=== PATIENT | male | born 1960 | race Caucasian/White ===

== ENCOUNTER → 2019-11-24 09:35 | Outpatient (BNVA) | payer BC, SELFPAY | PROVIDERS: Family Provider Nurse Practitioner; PCP Nurse Practitioner; Visit Provider Internal Medicine Rheumatology | DX: M05.79 Rheumatoid arthritis with rheumatoid factor of multiple sites without organ or systems involvement (principal); Z79.899 Other long term (current) drug therapy | CPT/HCPCS: 80076; 82565; 85025; 85651; 86140 ==

== ENCOUNTER → 2020-03-15 16:04 | Outpatient (BNVA) | payer BC, SELFPAY | PROVIDERS: Family Provider Nurse Practitioner; PCP Nurse Practitioner; Visit Provider Nurse Practitioner Family | DX: M06.9 Rheumatoid arthritis, unspecified (principal); I10 Essential (primary) hypertension; Z79.899 Other long term (current) drug therapy; G89.4 Chronic pain syndrome | CPT/HCPCS: 80076; 82306; 82565; 85025; 85651; 86140 ==

== ENCOUNTER → 2020-07-12 08:06 | Outpatient (BNVA) | payer BC, SELFPAY | PROVIDERS: Family Provider Nurse Practitioner; PCP Nurse Practitioner; Visit Provider Internal Medicine Rheumatology | DX: M06.9 Rheumatoid arthritis, unspecified (principal); Z79.899 Other long term (current) drug therapy; M19.90 Unspecified osteoarthritis, unspecified site | CPT/HCPCS: 80076; 82565; 85025; 85651; 86140 ==

== ENCOUNTER → 2020-08-14 09:24 | Outpatient (BNVA) | payer BC, SELFPAY | PROVIDERS: Family Provider Nurse Practitioner; PCP Nurse Practitioner; Visit Provider Internal Medicine Rheumatology | DX: M05.79 Rheumatoid arthritis with rheumatoid factor of multiple sites without organ or systems involvement (principal); Z79.899 Other long term (current) drug therapy; Z79.52 Long term (current) use of systemic steroids; I10 Essential (primary) hypertension; E55.9 Vitamin D deficiency, unspecified | CPT/HCPCS: 99214 ==

== ENCOUNTER → 2020-12-27 13:34 | Outpatient (BNVA) | payer BC, SELFPAY | PROVIDERS: Family Provider Nurse Practitioner; PCP Nurse Practitioner; Visit Provider Internal Medicine Rheumatology | DX: Z79.899 Other long term (current) drug therapy (principal) | CPT/HCPCS: 36415; 80076; 85025; 86140 ==

== ENCOUNTER → 2021-01-02 14:11 | Outpatient (BNVA) | payer BC, SELFPAY | PROVIDERS: Family Provider Nurse Practitioner; PCP Nurse Practitioner; Visit Provider Internal Medicine Rheumatology | DX: M05.79 Rheumatoid arthritis with rheumatoid factor of multiple sites without organ or systems involvement (principal); Z79.899 Other long term (current) drug therapy; Z79.52 Long term (current) use of systemic steroids; E55.9 Vitamin D deficiency, unspecified | CPT/HCPCS: 99214 ==

== ENCOUNTER 2021-03-20 06:13 | Outpatient (CLI) | payer SELFPAY ==
[2021-03-20 06:26] VITALS: BP 111/72; PULSE 82; RESP 18; TEMP 36.9; O2SAT 92
--- NOTE | 2021-03-20 06:56 | A.OFFVIS_ITS ---
Patient Information COVID 19 common symptoms: positive fever(s) and chills [facility] COVID test results: No Data to Display outside results available, scanned Criteria/Plan Inclusion/Exclusion Criteria weight >/= 40kg BMI >/= 35, has immunosuppressive disease and age >/= 55 and has hypertension not requiring hospitalization, not requiring oxygen (if not chronically on oxygen) and no increase oxygen requirement (if chronically on oxygen) Patient education patient/family/caregiver received/reviewed fact sheet, Emergency Use Authorization/unapproved drug status discussed with patient/family/caregiver, al ternatives to this treatment discussed with patient/family/caregiver, risks and benefits of medication reviewed with patient/family/caregiver, patient/family/caregiver given opportunity for questions, which were answered and patient consents to receiving Monoclonal Antibody Treatment Plan for treatment Meets criteria for Monoclonal Antibody infusion Ordering Monoclonal Antibody infusion for today
--- NOTE | 2021-03-20 07:17 | AMB.MCA ---
Patient Information Symptom onset date: 03/15/21 COVID 19 common symptoms: positive fever(s), chills, cough, non-productive cough, dyspnea, fatigue, body aches, headache(s), nasal congestion, nausea and diarrhea COVID 19 other sytmptoms: negative requiring oxygen Severity: mild Treatment prior to arrival: none Other details: 60-year-old male with a history of rheumatoid arthritis is on immunosuppressive therapy, he is also hypertensive. Patient had onset of symptoms approximately 1 week ago and a positive Covid test. Presents today for monoclonal antibody infusion vital signs are stable his oxygen sat on room air is 92%. He has generalized myalgias and cough. [facility] COVID test results: No Data to Display Criteria/Plan Inclusion/Exclusion Criteria weight >/= 40kg, + direct test </= 10 days ago and symptom onset </= 10 days ago receiving immunosuppressive therapy and has immunosuppressive disease not requiring hospitalization, not requiring oxygen (if not chronically on oxygen) and no increase oxygen requirement (if chronically on oxygen) Patient education patient/family/caregiver received/reviewed fact sheet, Emergency Use Authorization/unapproved drug status discussed with patient/family/caregiver, alternatives to this treatment discussed with patient/family/caregiver, risks and benefits of medication reviewed with patient/family/caregiver, patient/family/caregiver given opportunity for questions, which were answered and patient consents to receiving Monoclonal Antibody Treatment Plan for treatment Meets criteria for Monoclonal Antibody infusion Ordering Monoclonal Antibody infusion for today
[2021-03-20 08:00] VITALS: BP 111/71; PULSE 86; RESP 15; O2SAT 90
[2021-03-20 09:25] VITALS: PULSE 85; O2SAT 91
--- NOTE | 2021-03-28 13:25 | DCPLANNER ---
section [employer] property manager had message that patient received the monoclonal antibody infusion. section 8 property manager called patient to check on patient after receiving the infusion. section 8 property manager was unable to speak with patient at this time, a voicemail was left for patient to return case briefer phone call.
== END 2021-03-20 06:14 | disposition home or self-care (01) ==
PROVIDERS: PCP Nurse Practitioner; Visit Provider Nurse Practitioner Family
DX: U07.1 COVID-19 (principal); M06.9 Rheumatoid arthritis, unspecified; I10 Essential (primary) hypertension

== ENCOUNTER → 2021-04-05 10:37 | Outpatient (BNVA) | payer SELFPAY | PROVIDERS: PCP Nurse Practitioner; Visit Provider Nurse Practitioner Family | DX: I10 Essential (primary) hypertension (principal); R79.89 Other specified abnormal findings of blood chemistry | CPT/HCPCS: 80053; 80061; 83721; 84443; 85025; G0103 ==

== ENCOUNTER → 2021-04-09 10:15 | Outpatient (BNVA) | payer SELFPAY | PROVIDERS: PCP Nurse Practitioner; Visit Provider Nurse Practitioner Family | DX: E11.9 Type 2 diabetes mellitus without complications (principal) | CPT/HCPCS: 80053; 83036 ==

== ENCOUNTER → 2021-10-07 09:58 | Outpatient (BNVA) | payer SELFPAY | PROVIDERS: PCP Nurse Practitioner; Visit Provider Nurse Practitioner Family | DX: E11.9 Type 2 diabetes mellitus without complications (principal); G89.29 Other chronic pain; I10 Essential (primary) hypertension; M05.79 Rheumatoid arthritis with rheumatoid factor of multiple sites without organ or systems involvement; R79.89 Other specified abnormal findings of blood chemistry; Z79.899 Other long term (current) drug therapy | CPT/HCPCS: 80076; 82306; 82565; 85025; 86140 ==

== ENCOUNTER → 2022-04-28 12:49 | Outpatient (BNVA) | payer SELFPAY | PROVIDERS: PCP Nurse Practitioner; Visit Provider Internal Medicine Rheumatology | DX: M05.79 Rheumatoid arthritis with rheumatoid factor of multiple sites without organ or systems involvement (principal); Z79.899 Other long term (current) drug therapy; Z71.89 Other specified counseling | CPT/HCPCS: 36415; 80076; 82565; 85025; 86140 ==

== ENCOUNTER → 2023-01-13 14:42 | Outpatient (BNVA) | payer MEDICARE, OTHER, SELFPAY | PROVIDERS: PCP Nurse Practitioner; Visit Provider Internal Medicine Rheumatology | DX: M05.79 Rheumatoid arthritis with rheumatoid factor of multiple sites without organ or systems involvement (principal); Z79.899 Other long term (current) drug therapy; Z71.89 Other specified counseling | CPT/HCPCS: 80076; 82565; 85025; 86140; 99214 ==

== ENCOUNTER 2023-02-09 10:09 | Oncology outpatient (recurring) (ONCR) | payer MEDICARE, OTHER, SELFPAY ==
[2023-02-09 10:23] VITALS: BMI 26.6
[2023-02-09 10:30] VITALS: BP 134/90; PULSE 87; RESP 18; TEMP 36.4; O2SAT 96
[2023-02-09] MEDS: acetaminophen 325 mg Tablet 650 MG PO (10:39)
[2023-02-09] MEDS: diphenhydrAMINE 50 mg/mL SDV 1mL 25 MG IVP (10:39)
[2023-02-09] MEDS: sodium chloride 0.9% 250 ML 75 ML IV (10:41)
[2023-02-09] MEDS: abatacept 500 MG in sodium chloride 0.9% (100 ml) 100 ML 200 MG IV (11:11)
[2023-02-09 11:57] VITALS: BP 135/84; PULSE 67; RESP 18; TEMP 36.9; O2SAT 97
== END 2023-03-06 23:59 | disposition home or self-care (01) ==
PROVIDERS: PCP Nurse Practitioner; Visit Provider Internal Medicine Rheumatology
DX: M06.9 Rheumatoid arthritis, unspecified (principal)
CPT/HCPCS: 96365; 96375; J0129; J1200; J7050

== ENCOUNTER 2023-03-09 12:53 | Oncology outpatient (recurring) (ONCR) | payer MEDICARE, OTHER, SELFPAY ==
[2023-03-09 13:10] VITALS: BP 146/84; PULSE 82; RESP 17; TEMP 36.6; O2SAT 96
[2023-03-09] MEDS: diphenhydrAMINE 50 mg/mL SDV 1mL 25 MG IVP (13:22)
[2023-03-09] MEDS: sodium chloride 0.9% 250 ML 75 ML IV (13:22)
[2023-03-09] MEDS: acetaminophen 325 mg Tablet 650 MG PO (13:23)
[2023-03-09 13:32] LABS: Erythrocyte Sedimentation Rate 14 mm/hr (0-10)
[2023-03-09] MEDS: abatacept 500 MG in sodium chloride 0.9% (100 ml) 100 ML 200 MG IV (13:42)
[2023-03-09 13:43] LABS: Alanine Aminotransferase 10 U/L (0-41); Albumin Level 4.3 g/dL (3.5-5.2); Alkaline Phosphatase 88 U/L (40-130); Aspartate Amino Transferase 10 U/L (0-40); Globulin 2.4 g/dL (1.3-4.6); Total Bilirubin 0.4 mg/dL (0.15-1.2); Total Protein 6.7 g/dL (6.6-8.7)
[2023-03-09 14:22] VITALS: BP 145/88; PULSE 86; RESP 18; TEMP 36.2; O2SAT 96
== END 2023-04-06 23:59 | disposition home or self-care (01) ==
PROVIDERS: PCP Nurse Practitioner; Visit Provider Internal Medicine Rheumatology
DX: M06.9 Rheumatoid arthritis, unspecified (principal)
CPT/HCPCS: 80076; 82565; 85651; 96375; 96413; J0129; J1200; J7050

== ENCOUNTER 2023-05-04 13:02 | Oncology outpatient (recurring) (ONCR) | payer MEDICARE, OTHER, SELFPAY ==
[2023-04-07] MEDS: sodium chloride 0.9% 250 ML 75 ML IV (14:12)
[2023-04-07] MEDS: acetaminophen 325 mg Tablet 650 MG PO (14:12)
[2023-04-07] MEDS: abatacept 500 MG in sodium chloride 0.9% (100 ml) 100 ML 200 MG IV (14:33)
[2023-04-07 15:00] VITALS: BP 141/86; PULSE 82; RESP 18; TEMP 36.7; O2SAT 95
[2023-05-04 13:29] VITALS: BP 132/82; PULSE 82; RESP 16; TEMP 36.4; O2SAT 94
[2023-05-04] MEDS: acetaminophen 325 mg Tablet 650 MG PO (13:44)
[2023-05-04] MEDS: sodium chloride 0.9% 250 ML 75 ML IV (13:45)
[2023-05-04 13:48] LABS: Basophils % 0.3 %; Eosinophils # 0.3 10^3/uL (0.0-0.8); Eosinophils % 2.6 %; Hematocrit 41.1 % (37-53); Lymphocytes # 6.7 10^3/uL (0.8-4.8); Lymphocytes % 63.6 %; Mean Corpuscular HGB Conc 35.5 g/dL (30-55); Mean Corpuscular Hemoglobin 30.7 pg (27-33); Mean Corpuscular Volume 86.3 fl (82-101); Mean Platelet Volume 8.6 fL (7.4-10.4); Monocytes # 1.4 10^3/uL (0.2-0.9); Monocytes % 13.5 %; Neutrophils # 2.08 10^3/uL (1.8-7.7); Neutrophils % 19.7 %; Nucleated Red Blood Cells % 0 %; Platelet Count 165 10^3/cmm (157-399); Red Blood Count 4.76 10^6/uL (3.85-5.65); Red Cell Distribution Width 13.2 % (12.1-15.1); White Blood Count 10.58 10^3/uL (3.29-11.43)
[2023-05-04 13:55] LABS: Erythrocyte Sedimentation Rate 12 mm/hr (0-10)
[2023-05-04 14:10] LABS: Slide Review Slide Review Perform
[2023-05-04 14:17] LABS: Alanine Aminotransferase 10 U/L (0-41); Albumin Level 3.9 g/dL (3.5-5.2); Alkaline Phosphatase 95 U/L (40-130); Aspartate Amino Transferase 12 U/L (0-40); Globulin 2.4 g/dL (1.3-4.6); Glomerular Filtration Rate 98.3 mL/min (90-130); Total Bilirubin 0.5 mg/dL (0.15-1.2); Total Protein 6.3 g/dL (6.6-8.7)
[2023-05-04] MEDS: abatacept 500 MG in sodium chloride 0.9% (100 ml) 100 ML 200 MG IV (14:44)
[2023-05-04 15:16] VITALS: BP 147/82; PULSE 85; RESP 18; TEMP 36.3; O2SAT 95
== END 2023-05-07 23:59 | disposition home or self-care (01) ==
PROVIDERS: PCP Nurse Practitioner; Visit Provider Internal Medicine Rheumatology
DX: M06.9 Rheumatoid arthritis, unspecified (principal)
CPT/HCPCS: 80076; 82565; 85025; 85651; 96365; J0129; J7050

== ENCOUNTER → 2023-05-12 14:33 | Outpatient (BNVA) | payer MEDICARE, OTHER, SELFPAY | PROVIDERS: PCP Nurse Practitioner; Visit Provider Internal Medicine Rheumatology | DX: R59.1 Generalized enlarged lymph nodes; M05.79 Rheumatoid arthritis with rheumatoid factor of multiple sites without organ or systems involvement; Z71.89 Other specified counseling; Z79.899 Other long term (current) drug therapy | CPT/HCPCS: 99214 ==

== ENCOUNTER 2023-05-22 13:55 | Outpatient (CLI) | payer MEDICARE, OTHER, SELFPAY ==
--- NOTE | 2023-05-22 14:30 | US_ITS ---
WS: [id number] ULTRASOUND SOFT TISSUES LEFT axilla HISTORY: R59.0 - Localized enlarged lymph nodes COMPARISON: None available. TECHNIQUE: 2-D and color Doppler imaging is submitted. Multiple abnormal lymph nodes are noted within the LEFT axilla. The lymph nodes are enlarged with los s of the normal fatty hilum. Cortex is thickened and very hypoechoic. Largest lymph nodes measure fidel roximately 3.7 x 4.8 x 2.4 cm. No increased Doppler. IMPRESSION: LEFT axillary lymphadenopathy. This is more than typically noted with reactive adenopathy. Recommend follow-up chest CT with IV contrast. Lymph node biopsy may be necessary to determine the cause of the adenopathy. Consider etiologies such as lung cancer, head and neck cancer and lymphoma.
== END 2023-05-22 13:56 | disposition home or self-care (01) ==
LOC: RAD 13:57
PROVIDERS: PCP Nurse Practitioner; Visit Provider Internal Medicine Rheumatology
DX: R59.0 Localized enlarged lymph nodes (principal)
CPT/HCPCS: 76882

== ENCOUNTER 2023-06-12 12:08 | Outpatient (CLI) | payer MEDICARE, OTHER, SELFPAY ==
--- NOTE | 2023-06-12 12:19 | CT_ITS ---
WS: [id number] CT NECK TECHNIQUE: Contrast-enhanced CT of the neck with coronal and sagittal reformatted images. CLINICAL INFORMATION: R59.1 - Generalized enlarged lymph nodes COMPARISON: None. DLP: 633.[address] scans at [facility] use at least one of these dose optimization techniques: automated e xposure control; mA and/or kV adjustment per patient size (includes targeted exams where dose is matc hed to clinical indication); or iterative reconstruction. FINDINGS: Diffuse bilateral cervical lymphadenopathy with markedly enlarged lymph nodes at all cervical chains. This extends to the thoracic inlet and supraclavicular and infraclavicular stations. Enlarged lymph nodes partially visualized in the anterior mediastinum. Enlarged posterior triangle lymph nodes. Inspissated secretions with opacification of the RIGHT maxillary sinus. Complete opacification RIGHT maxillary sinus. Mastoid air cells are well aerated. Normal posterior nasopharynx. Normal parapharyng eal fat. Mild spondylitic changes cervical spine. Parotid glands are normal. Submandibular glands are normal. Enlarged submandibular lymph nodes. Normal posterior nasopharynx and parapharyngeal fat. No evidence of supraglottic or glottic mass. Normal subglottic airway. Thyroid gland appears normal. Benign-appearing hypertrophic change involving the RIGHT thyroid cartilage may be due to prior bony a vulsion injury or traumatic fracture in this area. IMPRESSION: 1. Diffuse bulky bilateral cervical involving all cervical levels extending to the thoracic inlet. A dditional lymphadenopathy involving the infraclavicular and supraclavicular regions extending into th e anterior mediastinum. 2. Findings are suspicious for lymphoma. Recommend correlation with clinical history. 3. Complete opacification of the RIGHT maxillary sinus. 4. Normal salivary glands.
[2023-06-12] MEDS: iohexol 350 mg/mL 500 mL Btl (per mL) IV (12:31)
--- NOTE | 2023-06-12 12:45 | CT_ITS ---
WS: [id number] CT CHEST TECHNIQUE: Contrast enhanced CT of the chest with coronal and sagittal reformatted images. CLINICAL INFORMATION: R59.1 - Generalized enlarged lymph nodes COMPARISON: None. DLP: ?? All CT scans at [facility] use at least one of these dose optimization techniques: automated e xposure control; mA and/or kV adjustment per patient size (includes targeted exams where dose is matc hed to clinical indication); or iterative reconstruction. FINDINGS: Enlarged lymph nodes in the lower neck described on the neck CT. Enlarged lymph nodes at the thoracic inlet and clavicular regions. Enlarged anterior mediastinal lymph nodes. Bulky subcarinal and RIGHT greater than LEFT hilar lymphadenopathy. Largest subcarinal lymph nodes measure up to 3 cm. Partiall y visualized marked bulky axillary lymphadenopathy in the LEFT axilla at the edge of the [id number]. Partially visualized RIGHT axillary lymphadenopathy. Largest LEFT subpectoral and axillary lymph n odes measure up to 3.6 cm. Enlarged retrocrural lymph nodes. Normal caliber thoracic aorta. Proximal main pulmonary arteries appear normal. Marked hepatomegaly with diffuse fatty filtration of the liver. Normal portal vein and splenic vein. Partially visualized splenomegaly measuring up to 16.1 cm [id number]. Partially visualized bulky ly mphadenopathy in the kenna hepatis and upper abdomen. Findings suspicious for lymphoma. Partially vis ualized enlarged kenna hepatis lymph nodes measuring 3.9 cm. Normal GE junction. Adrenal glands are n ormal. Moderate chronic eczematous changes. No acute pulmonary infiltrates. No focal pneumonia or pleural fl uid. IMPRESSION: 1. Lymphadenopathy in the lower neck and thoracic inlet as seen on the neck CT. 2. Bulky anterior mediastinal, subcarinal and RIGHT hilar lymphadenopathy suspicious for lymphoma. 3. Partially visualized marked bulky LEFT greater than RIGHT axillary lymphadenopathy and subpectora l lymphadenopathy. 4. Partially visualized hepatomegaly and splenomegaly also suspicious for lymphoma. Additional bulky lymphadenopathy partially visualized in the upper abdomen and kenna hepatis described above.
== END 2023-06-12 12:09 | disposition home or self-care (01) ==
LOC: RAD 12:08
PROVIDERS: PCP Nurse Practitioner; Visit Provider Internal Medicine Rheumatology
DX: R59.1 Generalized enlarged lymph nodes (principal)
CPT/HCPCS: 70491; 71260; Q9967

== ENCOUNTER 2023-06-29 13:00 | Oncology outpatient (recurring) (ONCR) | payer MEDICARE, OTHER, SELFPAY | END 2023-07-05 23:59 | disposition home or self-care (01) | PROVIDERS: PCP Nurse Practitioner; Visit Provider Internal Medicine Rheumatology | DX: Z53.9 Procedure and treatment not carried out, unspecified reason (principal) | CPT/HCPCS: 99215 ==

== ENCOUNTER → 2023-07-02 09:04 | Outpatient (BNVA) | payer MEDICARE, OTHER, SELFPAY | PROVIDERS: PCP Nurse Practitioner; Visit Provider Dermatology | DX: R59.0 Localized enlarged lymph nodes (principal); D48.5 Neoplasm of uncertain behavior of skin | CPT/HCPCS: 11102; 99204 ==

== ENCOUNTER 2023-07-03 12:05 | Outpatient (CLI) | payer MEDICARE, OTHER, SELFPAY ==
--- NOTE | 2023-07-03 13:30 | US_ITS ---
WS: [id number] ULTRASOUND-GUIDED LEFT AXILLARY BIOPSY CLINICAL INFORMATION: core needle biopsy of left axillary lymph node FINDINGS: The procedure including risks, benefits, and complications were discussed with the patient who agreed to proceed. Using sterile technique patient was prepped and draped in the usual sterile fashion. Aft er 1% lidocaine utilizing real-time ultrasound guidance 6 14-gauge cores were obtained of the LEFT ax illary lymph node. No immediate complications. Pathology demonstrates Final Diagnosis Left axillary lymph node, needle core biopsy: 1. CD5-positive B-cell lymphoma with an increased proportion of intermediate to large cells. IMPRESSION: 1. Uncomplicated ultrasound-guided LEFT axillary lymph node biopsy. 2. The pathology demonstrates B-cell lymphoma 3. Recommend Oncology consultation.
[2023-07-07 10:22] LABS: Lymphoma Profile (BBPL) See Report
== END 2023-07-03 12:06 | disposition home or self-care (01) ==
LOC: RAD 12:06
PROVIDERS: PCP Nurse Practitioner; Visit Provider Internal Medicine Medical Oncology
DX: C85.14 Unspecified B-cell lymphoma, lymph nodes of axilla and upper limb (principal); M06.9 Rheumatoid arthritis, unspecified; R59.1 Generalized enlarged lymph nodes
CPT/HCPCS: 38505; 76942; 88184; 88185; 88305; 88342